=== PATIENT | female | born 1965 ===

== ENCOUNTER 2016-08-29 23:10 | Emergency (ER) | payer MEDICAID ==
[2016-08-29 23:19] VITALS: BP 149/84; PULSE 74; RESP 18; TEMP 98.6; O2SAT 100
[2016-08-30] MEDS ORDERED: Oxycodone/Acetaminophen 5/325 mg Tab PO ONE (00:17)
--- NOTE | 2016-08-30 00:20 | ED PDOC ---
HPI: Back Time Seen by Provider: 08/29/16 23:31 Chief Complaint (Nursing): Back Pain Chief Complaint (Provider): back pain History Per: Patient History/Exam Limitations: no limitations Onset/Duration Of Symptoms: Days (3) Current Symptoms Are (Timing): Still Present Quality Of Discomfort: "Pain" Previous Symptoms: Back Pain, Chronic Pain Exacerbating Factor(s): Turning, Movement, Sitting Additional History Per: Patient Additional Complaint(s): 50 y/o female presents for eval of low back pain x 3 days. Associated radiation of pain down both legs, right worse than left. Patient seen by PMD today, told she has sciatica and prescribed anti-inflammatory and muscle relaxant, which patient took at 14:00. Patient also had MRI done after appointment. Patient presents due to no improvement of pain with meds taken. Denies fever, nausea/vomiting, numbness/weakness lower extremities, bowel/ bladder incontinence, dysuria, hematuria. Past Medical History Reviewed: Historical Data, Nursing Documentation, Vital Signs Vital Signs: Last Vital Signs Temp 98.6 F 08/29/16 23:15 Pulse 74 08/29/16 23:15 Resp 18 08/29/16 23:15 BP 149/84 08/29/16 23:15 Pulse Ox 100 08/29/16 23:15 - Medical History PMH: Back Problems, HTN - Surgical History Surgical History: - Family History Family History: States: Unknown Family Hx - Home Medications Home Medications: Ambulatory Orders Medication Instructions Recorded Acetaminophen/Butalbital/Caf 1 - 2 tab PO Q6 PRN #24 tab 10/03/14 [Fioricet 325 mg-50 mg-40 mg] Naproxen 500 mg PO Q12 #20 tab 09/06/15 traMADol [Ultram] 50 mg PO TID PRN #10 tab 09/06/15 traMADol [Ultram] 50 mg PO TID PRN #10 tab 08/30/16 - Allergies Allergies/Adverse Reactions: Allergies Allergy/AdvReac Type Severity Reaction Status Date / Time No Known Allergies Allergy Verified 10/03/14 16:47 Review of Systems ROS Statement: Except As Marked, All Systems Reviewed And Found Negative Musculoskeletal: Positive for: Back Pain Physical Exam - Reviewed Nursing Documentation Reviewed: Yes Vital Signs Reviewed: Yes - Physical Exam Appears: Positive for: Well, Non-toxic, Uncomfortable Head Exam: Positive for: ATRAUMATIC, NORMAL INSPECTION, NORMOCEPHALIC Skin: Positive for: Normal Color Cardiovascular/Chest: Positive for: Regular Rate, Rhythm Respiratory: Positive for: Normal Breath Sounds Back: Positive for: Decreased ROM (due to pain), Muscle Spasm (b/l lspine paraspinals), Other (+ right straight leg raise). Negative for: L CVA Tenderness, R CVA Tenderness, Vertebral Tenderness Extremity: Positive for: Normal ROM Neurologic/Psych: Positive for: Alert, Oriented - ECG O2 Sat by Pulse Oximetry: 100 - Progress ED Course And Treament: Toradol IM, flexeril PO, Percocet PO On re-eval, patient sleeping; upon awakening states pain has improved. Patient/family educated on findings, discharged with instructions to continue prescriptions as previously instructed. Rx Tramadol provided, patient educated on risk of narcotic abuse/dependence/ overdose, advised to take as needed for severe pain only. Follow up with pmd as scheduled. REturn to ED for worsening/concerning symptoms. Disposition - Clinical Impression Clinical Impression: Back pain, Sciatica - Patient ED Disposition Is Patient to be Admitted: No Counseled Patient/Family Regarding: Diagnosis, Need For Followup, Rx Given - Disposition Disposition: Routine/Home Disposition Time: 02:00 Condition: IMPROVED Prescriptions: traMADol [Ultram] 50 mg PO TID PRN #10 tab PRN Reason: Pain, Severe (8-10) Instructions: Back Pain (ED), Sciatica (ED) Print Language: GREENLANDIC
[2016-08-30] MEDS ORDERED: Oxycodone/Acetaminophen 5/325 mg Tab ONE (00:47)
== END 2016-08-30 02:10 | disposition home or self-care (01) ==
LOC: H.ER 23:10
DX: M54.30 Sciatica, unspecified side (principal); I10 Essential (primary) hypertension

== ENCOUNTER 2018-04-26 18:49 | Emergency (ER) | payer MEDICAID, OTHER ==
[2018-04-26 19:57] VITALS: TEMP 98.1
--- NOTE | 2018-04-26 23:21 | ED PDOC ---
HPI: Back Time Seen by Provider: 04/26/18 20:13 Chief Complaint (Nursing): Back Pain Chief Complaint (Provider): back pain History Per: Patient Additional Complaint(s): 52 y/o F with hx of lumbar disc herniation who presents with low back pain for the past couple of weeks. She has been taking Tylenol with no real improvement. Pain is intermittently radiating down both legs but over the past couple of days has had radiation down Right leg with intermittent numbness and tingling of her feet. Pain is worse with bending. Denies fever, chills, night sweats, trauma or fall. Past Medical History Reviewed: Historical Data, Nursing Documentation, Vital Signs Vital Signs: Last Vital Signs Temp 98.1 F 04/26/18 19:56 Pulse 63 04/26/18 19:56 Resp 16 04/26/18 19:56 BP 160/79 H 04/26/18 19:56 Pulse Ox 99 04/26/18 19:56 - Medical History PMH: Back Problems, HTN - Surgical History Surgical History: - Family History Family History: States: Unknown Family Hx - Home Medications Home Medications: Ambulatory Orders Medication Instructions Recorded Acetaminophen/Butalbital/Caf 1 - 2 tab PO Q6 PRN #24 tab 10/03/14 [Fioricet 325 mg-50 mg-40 mg] Naproxen 500 mg PO Q12 #20 tab 09/06/15 traMADol [Ultram] 50 mg PO TID PRN #10 tab 09/06/15 traMADol [Ultram] 50 mg PO TID PRN #10 tab 08/30/16 Cyclobenzaprine [Cyclobenzaprine 10 mg PO Q8 PRN 5 Days tab 04/26/18 HCl] Ibuprofen [Motrin Tab] 600 mg PO Q6 PRN 7 Days tab 04/26/18 - Allergies Allergies/Adverse Reactions: Allergies Allergy/AdvReac Type Severity Reaction Status Date / Time No Known Allergies Allergy Verified 04/26/18 19:17 Review of Systems Constitutional: Negative for: Fever, Chills Musculoskeletal: Positive for: Back Pain Neurological: Positive for: Weakness Physical Exam - Reviewed Nursing Documentation Reviewed: Yes Vital Signs Reviewed: Yes - Physical Exam Appears: Positive for: Uncomfortable Pulses-Dorsalis Pedis (L): 2+ Pulses-Dorsalis Pedis (R): 2+ Back: Positive for: Normal Inspection, Vertebral Tenderness (lumbar spinal and Right paravertebral tenderness on palpation. No erythema/edema/ecchymosis. ), Decreased ROM (with flexion of back and hips B/L. ) Extremity: Positive for: Capillary Refill (< 2 sec) Neurological/Psych: Positive for: Awake, Alert, Oriented - ECG O2 Sat by Pulse Oximetry: 99 Medical Decision Making Medical Decision Making: Toradol 30mg IM x 1 Flexeril 10mg PO x 1 Re-evaluation 23:00: re-evaluated, feeling better. Stable for d/c home. Disposition - Clinical Impression Clinical Impression: Sciatica - Patient ED Disposition Is Patient to be Admitted: No Counseled Patient/Family Regarding: Studies Performed, Diagnosis, Need For Followup - Disposition Referrals: [facility] [Outside] Disposition: Routine/Home Disposition Time: 23:24 Condition: STABLE Additional Instructions: Follow up with primary care doctor for further evaluation if pain persists. REturn to ER if you develop leg weakness, inability to hold your urine or worsening pain. Take Ibuprofen and Cyclobenzaprine as needed for pain. Avoid taking Cyclobenzaprine (muscle relaxer) if you will be driving or operating heavy machinery. Prescriptions: Cyclobenzaprine [Cyclobenzaprine HCl] 10 mg PO Q8 PRN 5 Days tab PRN Reason: Muscle Spasm Ibuprofen [Motrin Tab] 600 mg PO Q6 PRN 7 Days tab PRN Reason: Pain, Moderate (4-7) Instructions: Sciatica (DC), Sciatica Exercises Forms: [employer] (Icelandic) Print Language: URDU
[2018-04-26 23:36] VITALS: BP 141/95; PULSE 60; RESP 18
[2018-04-27 01:36] VITALS: O2SAT 99
== END 2018-04-26 23:37 | disposition home or self-care (01) ==
LOC: H.ER 18:49
DX: M54.31 Sciatica, right side (principal)
CPT/HCPCS: 96372; 99283; J1885

== ENCOUNTER 2018-06-30 16:21 | Emergency (ER) | payer SELFPAY ==
[2018-06-30 16:29] VITALS: RESP 20; TEMP 98.7
[2018-06-30] MEDS ORDERED: Dexamethasone 10 MG in Sodium Chloride 0.9% 50 ML IV STA (16:54)
--- NOTE | 2018-06-30 17:07 | ED PDOC ---
Upper Extremity Pain/Injury Time Seen by Provider: 06/30/18 16:52 Chief Complaint (Nursing): Upper Extremity Problem/Injury Chief Complaint (Provider): Upper Extremity Problem/Injury History Per: Patient, Computer Numerical Control Grinder (Navjot Mclean Computer Numerical Control Grinder #[id number]) History/Exam Limitations: no limitations Onset/Duration Of Symptoms: Days Current Symptoms Are (Timing): Still Present Additional Complaint(s): 52 y/o female with no significant PMHx presents to the ED for evaluation of left arm pain, onset two weeks ago. Patient notes pain worsened today and is associated with tingling from the fingers to the neck thus prompting today's visit. Patient states she has experienced similar pain to that arm in the past and was given Gapabentin by her PMD. Patient reports of taking Gabapentin last night with no relief of pain. Patient is unsure what causes the arm pain. Patient reports pain worsens with movement. Patient notes of additionally experiencing inflammation/bloating to the left abdomen for the past two years. Patient states she has been evaluated by her PMD and told to change her diet. However, patient states pain has persisted despite and has been constant since returning last night. Patient reports of taking Tylenol with no relief of pain. Patient notes constipation. Patient's last bowel movement was this morning. Otherwise: (-) heavy lifting, (-) shortness of breath, (-) chest pain, (-) nausea, (-) vomiting, (-) urinary symptoms. PMD: Burt Quiñones Past Medical History Reviewed: Historical Data, Nursing Documentation, Vital Signs Vital Signs: Last Vital Signs Temp 98.7 F 06/30/18 16:27 Pulse 70 06/30/18 16:27 Resp 20 06/30/18 16:27 BP 131/82 06/30/18 16:27 Pulse Ox 98 06/30/18 16:27 Primary Care Provider: FAMILY PROVIDER,NO - Medical History PMH: Back Problems, HTN - Surgical History Surgical History: (x2) - Family History Family History: States: Unknown Family Hx - Immunization History Hx Tetanus Toxoid Vaccination: No Hx Influenza Vaccination: No Hx Pneumococcal Vaccination: No - Home Medications Home Medications: Ambulatory Orders Medication Instructions Recorded Acetaminophen/Butalbital/Caf 1 - 2 tab PO Q6 PRN #24 tab 10/03/14 [Fioricet 325 mg-50 mg-40 mg] Naproxen 500 mg PO Q12 #20 tab 09/06/15 traMADol [Ultram] 50 mg PO TID PRN #10 tab 09/06/15 traMADol [Ultram] 50 mg PO TID PRN #10 tab 08/30/16 Cyclobenzaprine [Cyclobenzaprine 10 mg PO Q8 PRN 5 Days tab 04/26/18 HCl] Ibuprofen [Motrin Tab] 600 mg PO Q6 PRN 7 Days tab 04/26/18 Cyclobenzaprine [Cyclobenzaprine 10 mg PO TID PRN #12 tab 06/30/18 HCl] Famotidine [Pepcid] 20 mg PO DAILY #30 tab 06/30/18 Naproxen 500 mg PO BID PRN #20 tab 06/30/18 - Allergies Allergies/Adverse Reactions: Allergies Allergy/AdvReac Type Severity Reaction Status Date / Time No Known Allergies Allergy Verified 06/30/18 16:24 Review of Systems ROS Statement: Except As Marked, All Systems Reviewed And Found Negative Constitutional: Negative for: Fever Cardiovascular: Negative for: Chest Pain Respiratory: Negative for: Cough, Shortness of Breath Gastrointestinal: Positive for: Abdominal Pain, Constipation. Negative for: Nausea, Vomiting, Melena Genitourinary Female: Negative for: Dysuria, Frequency, Hematuria Musculoskeletal: Positive for: Neck Pain (tingling), Arm Pain Neurological: Negative for: Weakness, Numbness Physical Exam - Reviewed Nursing Documentation Reviewed: Yes Vital Signs Reviewed: Yes - Physical Exam Comments: GENERAL APPEARANCE: Patient is awake, alert, oriented x 3, in mild painful distress. SKIN: Warm, dry; (-) cyanosis. EYES: (-) conjunctival pallor, (-) scleral icterus. ENMT: Mucous membranes moist. NECK: (+) mild C6-C7 midline tenderness and left trapezius tenderness (-) stiffness, (-) lymphadenopathy. CHEST AND RESPIRATORY: (-)chest wall tenderness; (-) rales, (-) rhonchi, (-) wheezes; breath sounds equal bilaterally. HEART AND CARDIOVASCULAR: (-) irregularity; (-) murmur, (-) gallop. ABDOMEN AND GI: (-) distention. Bowel sounds active; (+) LUQ tenderness to palpation, (-) guarding, (-) rebound, (-) palpable masses, (-) CVA tenderness. EXTREMITIES: (-) deformity, (-) edema, (+) distal pulses +2, capillary refill <2sec. 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 water resources engineer 2-12 intact, normal finger to nose, no arm drift, 5/5 strength in all extremities. steady gait - Laboratory Results Result Diagrams: 06/30/18 17:29 06/30/18 17:29 - ECG ECG Rhythm: Positive for: Normal QRS, Sinus Rhythm. Negative for: ST/T Changes Rate: 65 O2 Sat by Pulse Oximetry: 98 (RA) Pulse Ox Interpretation: Normal Medical Decision Making Medical Decision Making: Time: 1653 Impression: Likely radiculopathy, will r/o cardiac etiology Plan: -- EKG -- CMP -- Lipase -- Troponin I -- ED Urine -- CBC with Differentials -- Cervical Spine 4 Views XR -- CXR Two Views -- Decadron 10 mg -- Sodium Chloride 0.9% 50 ml IV -- Flexeril 10 mg PO (pt is not driving home) -- Pepcid 20 mg IVP -- Toradol 30 mg IVP -- IV Insertion -- Shoulder Left XR -- Urinalysis -- re eval 17:55 Xrs reviewed by me - no active disease in chest, no acute fractures or dislocations on neck or shoulder, no significant DJD pt informed that she will be contacted if any discrepancies with radiology read pending labs results, pt receiving medications now 19:25 on re eval pt reports feeling much better, arm pain resolved, +FROM on arm, abdominal pain improving labs wnl, neg trop, cxr clear, ekg NSR, improved pain, stable for dc Discussed results, diagnosis, treatment, return precautions and f/u with pt who is understanding, in agreement and stable for dc Scribe Attestation: Documented by Christel Mejia, acting as a scribe for Adama Linn PA-C. Provider Scribe Attestation: All medical record entries made by the Scribe were at my direction and personally dictated by me. I have reviewed the chart and agree that the record accurately reflects my personal performance of the history, physical exam, medical decision making, and the department course for this patient. I have also personally directed, reviewed, and agree with the discharge instructions and disposition. Disposition - Clinical Impression Clinical Impression: Abdominal pain, Left shoulder pain, Radiculopathy of arm, Gastritis - Patient ED Disposition Is Patient to be Admitted: No Counseled Patient/Family Regarding: Studies Performed, Diagnosis, Need For Followup, Rx Given - Disposition Referrals: [facility] [Outside] Disposition: Routine/Home Disposition Time: 19:28 Condition: IMPROVED Additional Instructions: Franck por dejarnos cuidar de ti hoy. La atencin mdica de emergencia que recibi hoy se dirigi a ramses sntomas agudos. Si le recetaron algn medicamento, llnelo y tmelo segn las indicaciones. No conduzca, opere maquinaria pesada ni tome alcohol cuando tome flexeril. Los sntomas pueden tardar varios flores en resolverse. Regrese al Departamento de Emergencias si ramses sntomas empeoran, no mejoran o si tiene otros problemas. Comunquese con zimmerman mdico dentro de 2 flores para laura nueva evaluacin y vitaliy un seguimiento o llame a mari de los mdicos / clnicas a los que lamas sido referido y que figuran en el formulario de Informacin de visita al paciente que se incluy e en zimmerman paquete de argelia. Lleve todos los documentos que recibi al momento del argelia junto con los medicamentos que est tomando para zimmerman visita de seguimiento. Nuestro tratamiento no puede reemplazar la atencin mdica continua por parte de un proveedor de atencin primaria (PCP) fuera del departamento de emergencias. Thank you for letting us take care of you today. The emergency medical care you received today was directed at your acute symptoms. If you were prescribed any medication, please fill it and take as directed. Do not drive, operate heavy machinery or drink alcohol when taking flexeril. It may take several days for your symptoms to resolve. Return to the Emergency Department if your symptoms worsen, do not improve, or if you have any other problems. Please contact your doctor in 2 days for re-evaluation and follow up / or call one of the physicians/clinics you have been referred to that are listed on the Patient Visit Information form that is included in your discharge packet. Bring any paperwork you were given at discharge with you along with any medications you are taking to your follow up visit. Our treatment cannot replace ongoing medical care by a primary care provider (PCP) outside of the emergency department. Prescriptions: Cyclobenzaprine [Cyclobenzaprine HCl] 10 mg PO TID PRN #12 tab PRN Reason: muscle pain Famotidine [Pepcid] 20 mg PO DAILY #30 tab Naproxen 500 mg PO BID PRN #20 tab PRN Reason: Pain, Moderate (4-7) Instructions: Radiculopathy (DC), Stomach Ache and Stomach Upset, Shoulder Pain (DC) Forms: [employer] (South African) Print Language: SOUTH AFRICAN - POA Present On Arrival: None
[2018-06-30 17:24] LABS: SQUAMOUS EPITHIAL 1 /hpf (0-5); URINE BILIRUBIN NEGATIVE (NEGATIVE); URINE BLOOD NEGATIVE (NEGATIVE); URINE CLARITY SLIGHTY-CLOUDY (Clear); URINE COLOR YELLOW (YELLOW); URINE GLUCOSE (UA) NEG (NEGATIVE); URINE LEUKOCYTE ESTERASE NEG Leu/uL (Negative); URINE PROTEIN 100 mg/dL (NEGATIVE); URINE UROBILINOGEN 0.2-1.0 mg/dL (0.2-1.0)
[2018-06-30 17:36] LABS: BASO # 0.1 K/uL (0.0-0.2); BASO % 0.6 % (0.0-2.0); EOS # 0.2 K/uL (0.0-0.7); EOS % 1.8 % (0.0-4.0); HEMOGLOBIN 14.7 g/dL (12.0-16.0); LYMPH # 3.7 K/uL (1.0-4.3); LYMPH % 40.1 % (20.0-40.0); MEAN CELL VOLUME 87.2 fl (81.0-99.0); MEAN CORPUSCULAR HEMOGLOBIN 30.6 pg (27.0-31.0); MEAN CORPUSCULAR HGB CONC 35.1 g/dL (33.0-37.0); MEAN PLATELET VOLUME 8.6 fl (7.2-11.7); MONO # 0.4 K/uL (0.0-0.8); MONO % 4.9 % (0.0-10.0); NEUT # 4.9 K/uL (1.8-7.0); NEUT % 52.6 % (50.0-75.0); NRBC % 0.1 % (0.0-0.0); RBC 4.79 Mil/uL (3.80-5.20); RED CELL DISTRIBUTION WIDTH 12.9 % (11.5-14.5); WHITE BLOOD COUNT 9.2 K/uL (4.8-10.8)
[2018-06-30] MEDS ORDERED: Dexamethasone 10 MG in Sodium Chloride 0.9% 50 ML IV ONE (17:39)
[2018-06-30] MEDS ORDERED: Dexamethasone 4 mg/1 ml ONE (17:44)
[2018-06-30] MEDS ORDERED: Dexamethasone 4 mg/1 ml IVP ONE (17:45)
[2018-06-30 18:01] LABS: ALB/GLOB RATIO 1.2 (1.0-2.1); ALBUMIN 4.7 g/dL (3.5-5.0); ALT/SGPT 36 U/L (9-52); AST/SGOT 37 U/L (14-36); BLOOD UREA NITROGEN 12 mg/dl (7-17); CALCIUM 9.3 mg/dL (8.4-10.2); GFR NON-AFRICAN AMERICAN > 60; LIPASE 201 U/L (23-300)
[2018-06-30 19:49] VITALS: BP 124/77
--- NOTE | 2018-06-30 23:25 | CARD ---
APPROVED REPORT Date of service: 06/30/2018 EKG Measurement Heart [id number] <Conclusion> Normal sinus rhythm Normal ECG
[2018-07-01 00:37] VITALS: PULSE 65; O2SAT 98
--- NOTE | 2018-07-01 08:30 | RAD ---
Date of service: 06/30/2018 HISTORY: left shoulder pain COMPARISON: 03/08/2009 TECHNIQUE: Chest PA and lateral views FINDINGS: LUNGS: No active pulmonary disease. PLEURA: No significant pleural effusion identified. No pneumothorax apparent. CARDIOVASCULAR: No aortic atherosclerotic calcification present. Normal cardiac size. No pulmonary vascular congestion. OSSEOUS STRUCTURES: No significant abnormalities. VISUALIZED UPPER ABDOMEN: Normal. OTHER FINDINGS: None. IMPRESSION: No active disease. No significant interval change compared to the prior examination(s).
--- NOTE | 2018-07-01 09:37 | RAD ---
Date of service: 06/30/2018 PROCEDURE: Radiographs of the Left Shoulder HISTORY: Left shoulder Pain. No history of recent/ related trauma provided. COMPARISON: No prior. TECHNIQUE: 3 views obtained. FINDINGS: BONES: Normal. No fracture. JOINTS: Preserved glenohumeral relationship, acromioclavicular degenerative change: Mild. SOFT TISSUES: Normal. OTHER FINDINGS: None. IMPRESSION: Mild AC degenerative change. Otherwise unremarkable study.
--- NOTE | 2018-07-01 09:37 | RAD ---
Date of service: 06/30/2018 PROCEDURE: Cervical Spine Radiographs. HISTORY: Left shoulder and neck pain. No history of trauma provided COMPARISON: 12/12/2010. Cervical spine radiographs. TECHNIQUE: 3 views obtained. FINDINGS: BONES: Alignment maintained. No fracture. Dens Intact. DISC SPACES: Normal. SOFT TISSUES: Normal. No prevertebral soft tissue swelling. OTHER FINDINGS: None. IMPRESSION: No significant interval change compared to the prior examination(s).
== END 2018-06-30 19:45 | disposition home or self-care (01) ==
LOC: H.ER 16:21
DX: R10.9 Unspecified abdominal pain (principal); M25.512 Pain in left shoulder; M54.10 Radiculopathy, site unspecified; K29.70 Gastritis, unspecified, without bleeding; I10 Essential (primary) hypertension
CPT/HCPCS: 71046; 72050; 73030; 80053; 81003; 81025; 83690; 84484; 85025; 93005; 96374; 96375; 99284; J1100; J1885